=== PATIENT | male | born 1965 | race Caucasian/White ===

== ENCOUNTER 2019-02-03 13:04 | Emergency (ER) | payer OTHER ==
[2019-02-03] MEDS ORDERED: Eye Irrigation Solution 30 ML BOTTLE LEFT EYE ONE (13:45)
[2019-02-03] MEDS ORDERED: Fluorescein Sodium TOPICAL* 1 MG TEST STRIP OPHTHALMIC ONE (13:45)
[2019-02-03] MEDS ORDERED: Tetracaine 0.5% OPTH.SOL 4 ML* 1 DROP BTL ONE (13:50)
[2019-02-03] MEDS ORDERED: Tetracaine 0.5% OPTH.SOL 4 ML* 1 DROP BTL LEFT EYE ONE (13:55)
[2019-02-03] MEDS ORDERED: Tetracaine 0.5% OPTH.SOL 4 ML* 1 DROP BTL LEFT EYE SCH (14:00)
--- NOTE | 2019-02-03 14:09 | UC ---
Eye Complaint HPI - HPI Summary HPI Summary: Patient Chief Complaint: 53-year-old male with foreign body sensation in his left eye for approximately 25 hours. The patient was cleaning a house and sensed a foreign body in his eye. He then rubbed it. The patient does have a history of Lasik surgery to both eyes. He denies history of glaucoma or other eye problems. Patient is a smoker. Over the past day, the irritation has remained stable. MD note: vital signs stable. Vital signs beyond normal range reviewed. Nurses Note Reviewed. "he feels like something may have blown into his LEFT eye yesterday, he's had discomfort and FB sensation since then last tetanus vaccine was 2 years ago" Visit History Reviewed. Noncontributory to present complaint. Medications & Allergies Reviewed. - History of Current Complaint Chief Complaint: UCEye Stated Complaint: FB IN EYE Time Seen by Provider: 02/03/19 14:06 Pain Intensity: 1 - Allergies/Home Medications Allergies/Adverse Reactions: Allergies Allergy/AdvReac Type Severity Reaction Status Date / Time No Known Allergies Allergy Verified 02/03/19 13:43 Home Medications: Home Medications NK [No Home Medications Reported] 02/03/19 [History Confirmed 02/03/19] PMH/Surg Hx/FS Hx/Imm Hx - Additional Past Medical History Additional PMH: TREATING YOURSELF K PMH reviewed. Family History: Positive history of: - -CANCER -Denies hypertension, heart disease, stroke, diabetes. SOCIAL HISTORY: Employment: [employer] Habits: HEAVY EVERY DAY SMOKER Previously Healthy: Yes - Surgical History Surgical History: Yes Surgery Procedure, Year, and Place: lasik eye surgery 2018. knee surgery - Social History Alcohol Use: Rare Substance Use Type: None Smoking Status (MU): Heavy Every Day Tobacco Smoker Type: Cigarettes Amount Used/How Often: 1 PPD Review of Systems All Other Systems Reviewed And Are Negative: Yes Constitutional: Positive: Negative Skin: Positive: Negative Eyes: Positive: Photophobia, Other - IRRITATION OF THE BOTTOM EYELID OF THE LEFT EYE. Negative: Blurred Vision Respiratory: Positive: Negative Cardiovascular: Positive: Negative Gastrointestinal: Positive: Negative Genitourinary: Positive: Negative Is Patient Immunocompromised?: No Physical Exam - Summary Physical Exam Summary: Appearance: The patient is well-appearing, is in no pain or distress, and is well-nourished. Eyes: Conjunctiva are clear. Pupils are equal and reactive to light and accommodation. Extra ocular muscle movement is intact. THE UPPER EYELID of the left eye was everted and no foreign body was seen. The lower eyelid was also examined closely and a 1 mm pustule was noted on the inner lid margin. This was after examination with tetracaine and forcing. There was no corneal abrasion and no foreign body noted. There is no hyphema. ENT: The hearing is grossly normal, the pharynx is normal, and the TMs are normal. There is no muffled or hoarse voice. No stridor. Neck: The neck is supple and there is no lymphadenopathy. Respiratory: The chest is nontender to palpation and without crepitus. The lungs are clear, there are normal breath sounds, and there is no respiratory distress. No wheezes, rales or rhonchi. Cardiovascular: Heart sounds reveal a regular rate and rhythm. There are no clicks, rubs or murmurs. There are no carotid bruits or thrills. Circulation is grossly intact. Abdomen: The abdomen is soft and nontender. There is no organomegaly. Bowel sounds are present and within normal limits. No point tenderness at McBurneys point. Musculoskeletal: Strength is intact. The patient moves all extremities. Neurological: The patient is alert. Motor and sensory are examination grossly intact. Speech is normal. Psychological: The patient displays age appropriate behavior Skin: Negative for rashes. Triage Information Reviewed: Yes Vital Signs: Initial Vital Signs Temp 98 F 02/03/19 13:35 Pulse 74 02/03/19 13:35 Resp 14 02/03/19 13:35 BP 118/70 02/03/19 13:35 Pulse Ox 98 02/03/19 13:35 Eye Complaint Course/Dx - Course Course Of Treatment: 53-year-old male with foreign body sensation in his left eye for approximately 25 hours. The patient was cleaning a house and sensed a foreign body in his eye. He then rubbed it. The patient does have a history of Lasik surgery to both eyes. He denies history of glaucoma or other eye problems. Patient is a smoker. Over the past day, the irritation has remained stable. Physical examination was normal with the exception of a 2 mm pustule, the beginning of a stye, on the inner margin of the lower lid of the left eye. My diagnosis is stye of the lower lid of the left eye. There was no foreign body appreciated. The patient will be started on erythromycin and warm soaks. He knows to follow up with ophthalmology in 3 days if he is not improving. - Differential Dx/Diagnosis Differential Diagnosis/HQI/PQRI: Conjunctivitis, Corneal Abrasion, Foreign Body , Other - sty Provider Diagnosis: Sty, internal Discharge - Sign-Out/Discharge Documenting (check all that apply): Patient Departure All imaging exams completed and their final reports reviewed: No Studies - Discharge Plan Condition: Stable Disposition: HOME Patient Education Materials: Stye (ED) Referrals: No Primary Care Phys,NOPCP [Primary Care Provider] - [facility] [Provider Group] Additional Instructions: WE DISCUSSED: PLEASE SEEK CARE AT THE EMERGENCY DEPARTMENT IF SYMPTOMS WORSEN OR IF NEW SYMPTOMS DEVELOP. FOLLOW UP WITH EYE DOCTOR IF YOUR CONDITION CONTINUES BEYOND 3 DAYS WITHOUT IMPROVEMENT. We are open from 7 a.m. to 10 p.m. Call us with any questions or concerns. YOUR DIAGNOSIS IS: sty on the bottom of your left eye YOUR PRESCRIPTION RECOMMENDATION IS: erythromycin ointment, 4 times a day for 7 days. OTHER INSTRUCTIONS: warm moist heat to the area, for 10 minutes 4-6 times a day until pain goes away. For pain: Ibuprofen (Motrin and other brand names) 400-600mg PLUS acetaminophen (Tylenol and other brand names) 500mg - 1000mg every 8 hours. Maximum is 3 doses a day. If this dosage is required for more than 5 days, you should re-check with your doctor. The combination of these two over-the- counter medications can be more effective than each one taken alone. Please check with the pharmacist if you have questions about your allergies to these medications. - Billing Disposition and Condition Condition: STABLE Disposition: Home
== END 2019-02-03 14:47 | disposition home or self-care (01) ==
LOC: UCEAST 13:04
DX: H00.024 Hordeolum internum left upper eyelid (principal); F17.210 Nicotine dependence, cigarettes, uncomplicated
CPT/HCPCS: 99203; A9270-GY; G0463

== ENCOUNTER 2019-08-24 07:16 | Emergency (ER) | payer SELFPAY ==
[2019-08-24] MEDS ORDERED: Tetracaine 0.5% OPTH.SOL 4 ML* 1 DROP BTL ONE (07:29)
[2019-08-24] MEDS ORDERED: Fluorescein Sodium TOPICAL* 1 MG TEST STRIP OPHTHALMIC ONE (07:29)
--- NOTE | 2019-08-24 08:01 | UC ---
Eye Complaint HPI - HPI Summary HPI Summary: Patient presents to urgent care for evaluation of foreign body sensation left eye. 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 Patient states that Thursday he felt here from the Zyprexa yesterday he had increasing pain. Patient had left over eye ointment that he apply twice yesterday stating it burned. Patient has any vision changes but states it's been draining clear tears. No fevers or chills. No analgesic taken. Patient states he still feels like there something in it. Patient is status post Lasix surgery 3 years ago. Patient's tetanus is up- to-date. Medications reviewed this visit. Patient is not immunocompromised. - History of Current Complaint Chief Complaint: UCEye Stated Complaint: FB IN EYE Time Seen by Provider: 08/24/19 07:40 Hx Obtained From: Patient Severity Initially: Mild Severity Currently: Moderate Pain Intensity: 4 Pain Scale Used: 0-10 Numeric - Allergies/Home Medications Allergies/Adverse Reactions: Allergies Allergy/AdvReac Type Severity Reaction Status Date / Time No Known Allergies Allergy Verified 02/03/19 13:43 PMH/Surg Hx/FS Hx/Imm Hx Previously Healthy: Yes - Surgical History Surgical History: Yes Surgery Procedure, Year, and Place: lasik eye surgery 2018. knee surgery - Family History Known Family History: Positive: Non-Contributory - She lives at - Social History Occupation: Employed Full-time - The hospital Lives: With Family Alcohol Use: Occasionally Substance Use Type: None Smoking Status (MU): Heavy Every Day Tobacco Smoker Type: Cigarettes Amount Used/How Often: 1 PPD Review of Systems All Other Systems Reviewed And Are Negative: Yes Constitutional: Positive: Negative Skin: Positive: Negative Eyes: Positive: Drainage, Eye Redness, Photophobia. Negative: Blurred Vision, Diplopia ENT: Positive: Negative Motor: Positive: Negative Neurovascular: Positive: Negative Musculoskeletal: Positive: Negative Physical Exam - Summary Physical Exam Summary: Vital Signs Reviewed: Yes A+Ox3, no distress Eyes: left eye injected, clear tears, mild photophobia crisp fundoscopic Place tetracaine - pain resolved after burning placed drop of mitchell-ángel - pt with updated 9ock on iris no foreign body noted everted upper and lower lids without f.b visual acuity reviewed ENT: Hearing grossly normal neck: supple Respiratory: Positive: No respiratory distress, No accessory muscle use Cardiovascular: skin color reflect adequate perfusion Musculoskeletal Exam: MURDOCK x 4 without difficulty Neurological: Positive: Alert, ambulatory without difficulty Psychological: Positive: Normal Response To examiner Skin: Positive: no rash, no ecchymosis Triage Information Reviewed: Yes Vital Signs: Initial Vital Signs Temp 97.9 F 08/24/19 07:34 Pulse 69 08/24/19 07:34 Resp 18 08/24/19 07:34 BP 115/78 08/24/19 07:34 Pulse Ox 99 08/24/19 07:34 Eye Complaint Course/Dx - Course Course Of Treatment: Patient presents to urgent care for evaluation of aforementioned sensation of left eye. Patient's comprehensive vomiting and is I Thursday. Patient visual acuity reviewed. Patient's I injected with clear discharge. Under fluorescein staining patient does have uptake at 9:00 on the iris. No foreign body noted with eversion of both lids. Discussed with patient care. We'll prescribe Polytrim. Patient given her jerks that he does not have insurance. Recommend follow-up with ophthalmology. Motrin Tylenol. Strict return precautions. Patient comfortable and agreed with plan. - Differential Dx/Diagnosis Provider Diagnosis: Corneal abrasion Discharge ED - Sign-Out/Discharge Documenting (check all that apply): Patient Departure All imaging exams completed and their final reports reviewed: No Studies - Discharge Plan Condition: Stable Disposition: HOME Prescriptions: Polymyx/Trimethoprim OPTH* [Polytrim OPHTH*] 2 drop BOTH EYES TID #1 btl Patient Education Materials: Corneal Abrasion (ED) Referrals: [facility] [[facility]] Praful Curiel MD [Medical Doctor] - Additional Instructions: - apply eye ointment to affected every 3 times a day for the next 5 days -okay to alternate ibuprofen (Advil, Motrin) 600mg and tylenol every 3 hours for pain. Take with food -Okay to purchase and use an eye patch for comfort - cool wet soaks are okay to hold along your eye -contact the eyeglass frame [facility] to schedule a follow-up this week. Contact the eyeglass frame [facility] if you have any questions or concerns - Billing Disposition and Condition Condition: STABLE Disposition: Home
== END 2019-08-24 08:04 | disposition home or self-care (01) ==
LOC: UCEAST 07:16
DX: S05.02XA Injury of conjunctiva and corneal abrasion without foreign body, left eye, initial encounter (principal); F17.210 Nicotine dependence, cigarettes, uncomplicated; X58.XXXA Exposure to other specified factors, initial encounter; Y92.9 Unspecified place or not applicable
CPT/HCPCS: 99212; A9270-GY; G0463